=== PATIENT | female | born 1945 | race Caucasian/White ===

== ENCOUNTER 2019-04-21 11:43 | Day surgery (SDC) | payer OTHER ==
[2019-04-15 16:33] VITALS: BMI 31.0
[2019-04-21] MEDS ORDERED: PROPOFOL 20 ML ONE (12:31)
[2019-04-21 14:07] VITALS: BP 128/67; PULSE 78; TEMP 98
== END 2019-04-21 14:07 | disposition home or self-care (01) ==
LOC: FASU-ENDO 11:43
PROVIDERS: ATTEND Internal Medicine Gastroenterology
PROC: 0DJD8ZZ Inspection of Lower Intestinal Tract, Via Natural or Artificial Opening Endoscopic (ICD-10-PCS; principal; 2019-04-21 12:16)
DX: Z12.11 Encounter for screening for malignant neoplasm of colon (principal); K64.0 First degree hemorrhoids; K63.89 Other specified diseases of intestine

== ENCOUNTER 2021-01-23 13:45 | Inpatient (IN) | payer OTHER ==
[2021-01-23 14:21] VITALS: BMI 23.6
[2021-01-23] MEDS ORDERED: ACETAMINOPHEN 1000 MG/100 ML VIAL (NON FORMULARY) IVPB ONE (15:13)
[2021-01-23] MEDS ORDERED: SODIUM CHLORIDE 500 ML IV STA (15:14)
[2021-01-23] MEDS ORDERED: ACETAMINOPHEN INJECTION 100 ML IVPB ONE (15:23)
[2021-01-23 15:57] LABS: BASO % 0.2 % (0-2.0); EOS % 1.1 % (0-4.5); HEMATOCRIT 33.4 % (32.4-45.2); HEMOGLOBIN 10.8 GM/dL (10.7-15.3); LYMPH % 11.5 % (8-40); MCH 29.4 pg (25.7-33.7); MCHC 32.3 g/dl (32.0-36.0); MEAN CELL VOLUME 91.1 fl (80-96); MEAN PLT VOLUME 8.2 fl (7.5-11.1); MONO % 11.2 % (3.8-10.2); PLATELET COUNT 257 K/MM3 (134-434); RBC 3.67 M/mm3 (3.60-5.2); RDW 17.5 % (11.6-15.6); WHITE BLOOD COUNT 10.7 K/mm3 (4.0-10.0)
[2021-01-23 16:04] LABS: INR 1.03 (0.83-1.09); PROTHROMBIN TIME (PATIENT) 12.4 SEC (9.7-13.0)
[2021-01-23 16:06] LABS: ACTIVATED PTT 30.5 SECONDS (25.2-36.5)
[2021-01-23 16:15] LABS: POTASSIUM 4.5 mmol/L (3.5-5.1)
[2021-01-23 16:17] LABS: CALCIUM 8.5 mg/dL (8.5-10.1)
[2021-01-23 16:18] LABS: ALBUMIN 2.4 g/dl (3.4-5.0); BLOOD UREA NITROGEN 29.9 mg/dL (7-18); MAGNESIUM 2.3 mg/dL (1.8-2.4)
[2021-01-23 16:21] LABS: CREATININE 1.5 mg/dL (0.55-1.3)
[2021-01-23 16:22] LABS: BILIRUBIN,TOTAL 0.2 mg/dL (0.2-1); TOT PROT 5.3 g/dl (6.4-8.2)
[2021-01-24 07:29] LABS: HEMATOCRIT 31.4 % (32.4-45.2); HEMOGLOBIN 10.4 GM/dL (10.7-15.3); MCH 29.9 pg (25.7-33.7); MCHC 33.3 g/dl (32.0-36.0); MEAN CELL VOLUME 89.9 fl (80-96); MEAN PLT VOLUME 8.4 fl (7.5-11.1); PLATELET COUNT 245 K/MM3 (134-434); RBC 3.49 M/mm3 (3.60-5.2); RDW 17.7 % (11.6-15.6); WHITE BLOOD COUNT 6.7 K/mm3 (4.0-10.0)
[2021-01-24 07:40] LABS: POTASSIUM 4.4 mmol/L (3.5-5.1)
[2021-01-24 07:46] LABS: CALCIUM 8.6 mg/dL (8.5-10.1)
[2021-01-24 07:47] LABS: ALBUMIN 2.2 g/dl (3.4-5.0); BLOOD UREA NITROGEN 25.4 mg/dL (7-18)
[2021-01-24 07:50] LABS: BILIRUBIN,TOTAL 0.4 mg/dL (0.2-1); CREATININE 1.5 mg/dL (0.55-1.3); TOT PROT 4.9 g/dl (6.4-8.2)
[2021-01-24] MEDS: SODIUM CHLORIDE 1,000 ML IV SCH ×2 (12:18→22:49)
[2021-01-24] MEDS: CARBIDOPA/LEVODOPA 25/100 TABLET (FP) PO SCH ×2 (14:32→22:49)
[2021-01-24] MEDS ORDERED: CARBIDOPA/LEVODOPA 25/100 TABLET (FP) ONE (14:32)
[2021-01-24 14:37] LABS: EPI CELLS 3 /uL (0-25.1); HYALINE CASTS 17 /uL (0-3.1); PH,URINE >= 9.0 (5.0-8.0); URINE APPEARANCE TURBID; URINE BACTERIA 966 /uL (0-1359); URINE BILIRUBIN NEGATIVE (NEGATIVE); URINE COLOR YELLOW; URINE GLUCOSE (UA) NEGATIVE (NEGATIVE); URINE KETONE NEGATIVE (NEGATIVE); URINE LEUK ESTERASE 3+ (NEGATIVE); URINE NITRITE NEGATIVE (NEGATIVE); URINE PROTEIN 1+ (NEGATIVE); URINE WBC 11001 /uL (0-25.8)
[2021-01-24 14:52] LABS: URINE RBC 174.9 /uL (0-23.9)
[2021-01-24 15:10] LABS: YEAST NON SEEN (NEGATIVE)
[2021-01-24] MEDS ORDERED: PT OWN MED DRAWER 7, Y5N ONE (22:25)
[2021-01-24] MEDS: clonazePAM 0.5 MG TABLET PO SCH (22:49)
[2021-01-24] MEDS: DIVALPROEX SODIUM 250 MG TABLET E.C. PO SCH (22:49)
[2021-01-24] MEDS: LATANOPROST 0.005% OPHTH SOLN 2.5ML BOTTLE OU SCH (22:49)
[2021-01-25] MEDS: LEVOTHYROXINE NA 75 MCG TABLET (FP) PO SCH (06:39)
[2021-01-25] MEDS: CARBIDOPA/LEVODOPA 25/100 TABLET (FP) PO SCH ×3 (06:39→22:10)
[2021-01-25] MEDS ORDERED: PT OWN MED DRAWER 7, Y5N ONE ×2 (09:09→21:52)
[2021-01-25] MEDS: DIVALPROEX SODIUM 250 MG TABLET E.C. PO SCH ×2 (09:22→22:00)
[2021-01-25] MEDS: ESCITALOPRAM OXALATE 10 MG TABLET PO SCH (09:22)
[2021-01-25] MEDS: ENOXAPARIN NA (PORCINE) 40 MG/0.4 ML DISP.SYRIN SQ SCH (14:46)
[2021-01-25] MEDS: SODIUM CHLORIDE 1,000 ML IV SCH ×2 (15:57→22:08)
[2021-01-25] MEDS: clonazePAM 0.5 MG TABLET PO SCH (21:59)
[2021-01-25] MEDS: LATANOPROST 0.005% OPHTH SOLN 2.5ML BOTTLE OU SCH (22:08)
[2021-01-26] MEDS: SODIUM CHLORIDE 1,000 ML IV SCH (01:37)
[2021-01-26] MEDS: LEVOTHYROXINE NA 75 MCG TABLET (FP) PO SCH (06:02)
[2021-01-26] MEDS: CARBIDOPA/LEVODOPA 25/100 TABLET (FP) PO SCH ×3 (06:02→21:35)
[2021-01-26] MEDS ORDERED: PT OWN MED DRAWER 7, Y5N ONE ×2 (09:44→21:32)
[2021-01-26] MEDS: DIVALPROEX SODIUM 250 MG TABLET E.C. PO SCH ×2 (09:55→21:35)
[2021-01-26] MEDS: ENOXAPARIN NA (PORCINE) 40 MG/0.4 ML DISP.SYRIN SQ SCH (09:56)
[2021-01-26] MEDS: ESCITALOPRAM OXALATE 10 MG TABLET PO SCH (09:56)
[2021-01-26] MEDS: clonazePAM 0.5 MG TABLET PO SCH (21:34)
[2021-01-26] MEDS: LATANOPROST 0.005% OPHTH SOLN 2.5ML BOTTLE OU SCH (21:36)
[2021-01-27] MEDS: CARBIDOPA/LEVODOPA 25/100 TABLET (FP) PO SCH ×3 (05:57→23:00)
[2021-01-27] MEDS: LEVOTHYROXINE NA 75 MCG TABLET (FP) PO SCH (06:00)
[2021-01-27] MEDS ORDERED: PT OWN MED DRAWER 7, Y5N ONE ×2 (10:14→22:59)
[2021-01-27] MEDS: SODIUM CHLORIDE 1,000 ML IV SCH ×3 (10:23→22:55)
[2021-01-27] MEDS: ESCITALOPRAM OXALATE 10 MG TABLET PO SCH (10:24)
[2021-01-27] MEDS: DIVALPROEX SODIUM 250 MG TABLET E.C. PO SCH ×3 (10:25→23:23)
[2021-01-27] MEDS: ENOXAPARIN NA (PORCINE) 40 MG/0.4 ML DISP.SYRIN SQ SCH (10:25)
[2021-01-27] MEDS: clonazePAM 0.5 MG TABLET PO SCH (23:04)
[2021-01-27] MEDS: LATANOPROST 0.005% OPHTH SOLN 2.5ML BOTTLE OU SCH (23:23)
[2021-01-28] MEDS: LEVOTHYROXINE NA 75 MCG TABLET (FP) PO SCH (07:02)
[2021-01-28] MEDS: CARBIDOPA/LEVODOPA 25/100 TABLET (FP) PO SCH ×3 (07:02→22:17)
[2021-01-28] MEDS: SODIUM CHLORIDE 1,000 ML IV SCH ×2 (07:41→22:19)
[2021-01-28] MEDS: DIVALPROEX SODIUM 250 MG TABLET E.C. PO SCH ×2 (10:46→22:19)
[2021-01-28] MEDS: ESCITALOPRAM OXALATE 10 MG TABLET PO SCH (10:46)
[2021-01-28] MEDS ORDERED: PT OWN MED DRAWER 7, Y5N ONE (22:12)
[2021-01-28] MEDS: POLYETHYLENE GLYCOL 3350 119 GM BTL PO SCH (22:16)
[2021-01-28] MEDS: clonazePAM 0.5 MG TABLET PO SCH (22:20)
[2021-01-28] MEDS: LATANOPROST 0.005% OPHTH SOLN 2.5ML BOTTLE OU SCH (22:21)
[2021-01-29] MEDS: SODIUM CHLORIDE 1,000 ML IV SCH ×2 (04:10→21:41)
[2021-01-29] MEDS: LEVOTHYROXINE NA 75 MCG TABLET (FP) PO SCH (06:21)
[2021-01-29] MEDS: CARBIDOPA/LEVODOPA 25/100 TABLET (FP) PO SCH ×3 (06:21→21:42)
[2021-01-29] MEDS ORDERED: PT OWN MED DRAWER 7, Y5N ONE ×2 (09:26→14:26)
[2021-01-29 09:27] LABS: BASO % 0.4 % (0-2.0); EOS % 1.7 % (0-4.5); HEMATOCRIT 28.2 % (32.4-45.2); HEMOGLOBIN 9.4 GM/dL (10.7-15.3); LYMPH % 28.7 % (8-40); MCH 29.7 pg (25.7-33.7); MCHC 33.3 g/dl (32.0-36.0); MEAN CELL VOLUME 89.4 fl (80-96); MONO % 10.8 % (3.8-10.2); NEUT % 58.4 % (42.8-82.8); PLATELET COUNT 176 K/MM3 (134-434); RBC 3.15 M/mm3 (3.60-5.2); RDW 16.9 % (11.6-15.6); WHITE BLOOD COUNT 3.5 K/mm3 (4.0-10.0)
[2021-01-29 09:28] LABS: CHLORIDE 114 mmol/L (98-107); POTASSIUM 3.8 mmol/L (3.5-5.1); SODIUM 142 mmol/L (136-145)
[2021-01-29 09:31] LABS: CALCIUM 7.7 mg/dL (8.5-10.1)
[2021-01-29 09:32] LABS: ANION GAP 4 MMOL/L (8-16); BLOOD UREA NITROGEN 12.8 mg/dL (7-18); CO2 24 mmol/L (21-32); GLUCOSE,RANDOM 71 mg/dL (74-106)
[2021-01-29 09:35] LABS: CREATININE 1.1 mg/dL (0.55-1.3); SGOT/AST 12 U/L (15-37); SGPT/ALT < 6 U/L (13-61)
[2021-01-29 09:36] LABS: BILIRUBIN,TOTAL 0.3 mg/dL (0.2-1); TOT PROT 3.8 g/dl (6.4-8.2)
[2021-01-29 09:38] LABS: ALK PHOS 96 U/L (45-117)
[2021-01-29 09:39] LABS: ALBUMIN 1.7 g/dl (3.4-5.0)
[2021-01-29] MEDS: ESCITALOPRAM OXALATE 10 MG TABLET PO SCH (09:39)
[2021-01-29] MEDS: DIVALPROEX SODIUM 250 MG TABLET E.C. PO SCH ×2 (09:39→21:43)
[2021-01-29] MEDS: POLYETHYLENE GLYCOL 3350 119 GM BTL PO SCH (09:40)
[2021-01-29] MEDS ORDERED: MIDAZOLAM HCL 2 MG/2 ML SINGLE DOSE VIAL ONE (16:05)
[2021-01-29] MEDS: clonazePAM 0.5 MG TABLET PO SCH (21:43)
[2021-01-29] MEDS: LATANOPROST 0.005% OPHTH SOLN 2.5ML BOTTLE OU SCH (21:46)
[2021-01-30] MEDS: SODIUM CHLORIDE 1,000 ML IV SCH ×3 (01:00→16:08)
[2021-01-30] MEDS: CARBIDOPA/LEVODOPA 25/100 TABLET (FP) PO SCH ×3 (06:12→22:04)
[2021-01-30] MEDS: LEVOTHYROXINE NA 75 MCG TABLET (FP) PO SCH (06:12)
[2021-01-30] MEDS ORDERED: PT OWN MED DRAWER 7, Y5N ONE (09:14)
[2021-01-30] MEDS: ESCITALOPRAM OXALATE 10 MG TABLET PO SCH (09:39)
[2021-01-30] MEDS: DIVALPROEX SODIUM 250 MG TABLET E.C. PO SCH ×2 (09:39→22:04)
[2021-01-30] MEDS: POLYETHYLENE GLYCOL 3350 119 GM BTL PO SCH (09:39)
[2021-01-30] MEDS: clonazePAM 0.5 MG TABLET PO SCH (22:04)
[2021-01-30] MEDS: LATANOPROST 0.005% OPHTH SOLN 2.5ML BOTTLE OU SCH (22:12)
[2021-01-31] MEDS: SODIUM CHLORIDE 1,000 ML IV SCH (02:05)
[2021-01-31] MEDS: LEVOTHYROXINE NA 75 MCG TABLET (FP) PO SCH (06:01)
[2021-01-31] MEDS: CARBIDOPA/LEVODOPA 25/100 TABLET (FP) PO SCH ×3 (06:01→21:26)
[2021-01-31 07:07] LABS: SARS-CoV-2 NAA Not Detected (Not Detected)
[2021-01-31 09:21] LABS: CALCIUM 8.6 mg/dL (8.5-10.1)
[2021-01-31 09:22] LABS: BLOOD UREA NITROGEN 14.6 mg/dL (7-18)
[2021-01-31] MEDS ORDERED: PT OWN MED DRAWER 7, Y5N ONE (10:38)
[2021-01-31] MEDS: DIVALPROEX SODIUM 250 MG TABLET E.C. PO SCH ×2 (10:56→21:26)
[2021-01-31] MEDS: ESCITALOPRAM OXALATE 10 MG TABLET PO SCH (10:56)
[2021-01-31] MEDS: POLYETHYLENE GLYCOL 3350 119 GM BTL PO SCH (10:57)
[2021-01-31] MEDS: clonazePAM 0.5 MG TABLET PO SCH (21:26)
[2021-01-31] MEDS: LATANOPROST 0.005% OPHTH SOLN 2.5ML BOTTLE OU SCH (21:26)
[2021-02-01 02:34] VITALS: BP 110/64; PULSE 75; TEMP 98
== END 2021-02-01 05:47 | DRG 669 ==
LOC: JER 13:45 → JERBED 17:24 → J6S 01-24 14:54
PROVIDERS: ADMIT Internal Medicine; ATTEND Internal Medicine
PROC: BT17ZZZ Fluoroscopy of Left Ureter (ICD-10-PCS; 2021-01-29)
PROC: 0TC77ZZ Extirpation of Matter from Left Ureter, Via Natural or Artificial Opening (ICD-10-PCS; principal; 2021-01-29 14:30)
DX: T83.593A Infection and inflammatory reaction due to other urinary stents, initial encounter (principal); N13.6 Pyonephrosis; J44.9 Chronic obstructive pulmonary disease, unspecified; E03.9 Hypothyroidism, unspecified; G25.0 Essential tremor; F31.9 Bipolar disorder, unspecified; F41.9 Anxiety disorder, unspecified; K21.9 Gastro-esophageal reflux disease without esophagitis; F41.8 Other specified anxiety disorders; M54.5 Low back pain; G89.29 Other chronic pain; I12.9 Hypertensive chronic kidney disease with stage 1 through stage 4 chronic kidney disease, or unspecified chronic kidney disease; N18.9 Chronic kidney disease, unspecified; G20 Parkinson's disease; K59.09 Other constipation; R63.4 Abnormal weight loss; Z68.23 Body mass index [BMI] 23.0-23.9, adult; Y83.8 Other surgical procedures as the cause of abnormal reaction of the patient, or of later complication, without mention of misadventure at the time of the procedure
CPT/HCPCS: 36415; 71250-TC; 72125-TC; 72128-TC; 72131-TC; 74176-TC; 80048; 80053; 81003; 83735; 85025; 85027; 85610; 85730; 86850; 86900; 86901; 87086; 93005; 93010; 99285-25; C9803; J0131; U0003; U0005

== ENCOUNTER 2021-02-12 04:23 | Day surgery (SDC) | payer OTHER ==
[2021-02-09 17:19] VITALS: BMI 23.7
[2021-02-12] MEDS ORDERED: LIDOCAINE HCL/PF 2% SDV 5ML VIAL ONE (08:56)
[2021-02-12] MEDS ORDERED: PROPOFOL 20 ML ONE ×2 (08:56)
[2021-02-12] MEDS ORDERED: MIDAZOLAM HCL 2 MG/2 ML SINGLE DOSE VIAL ONE (08:57)
[2021-02-12] MEDS ORDERED: DEXAMETHASONE SOD PHOSPHATE 4 MG/1 ML VIAL ONE (09:29)
[2021-02-12] MEDS ORDERED: ACETAMINOPHEN 325 MG TABLET (FP) PO PRN (10:06)
[2021-02-12] MEDS ORDERED: ONDANSETRON 4 MG/2 ML VIAL IVPUSH PRN (10:06)
[2021-02-12] MEDS ORDERED: LACTATED RINGERS SOLUTION 1,000 ML IV SCH (10:15)
[2021-02-12 12:53] VITALS: BP 106/60; PULSE 82; TEMP 97.8
== END 2021-02-12 12:30 ==
LOC: JASU-SURG 04:23
PROVIDERS: ATTEND Urology
PROC: 0T9780Z Drainage of Left Ureter with Drainage Device, Via Natural or Artificial Opening Endoscopic (ICD-10-PCS; principal; 2021-02-12 08:30)
DX: N20.0 Calculus of kidney (principal); N20.1 Calculus of ureter
CPT/HCPCS: 76000-TC-FY; 88300-TC; 94760

== ENCOUNTER 2021-02-16 09:29 | Day surgery (SDC) | payer OTHER ==
[2021-02-12 15:43] VITALS: BMI 26.7
[2021-02-16] MEDS ORDERED: PROPOFOL 20 ML ONE ×3 (09:55)
[2021-02-16 11:47] VITALS: TEMP 97.8
[2021-02-16 12:15] VITALS: BP 124/58; PULSE 72
== END 2021-02-16 12:35 ==
LOC: FASU-ENDO 09:29
PROVIDERS: ATTEND Internal Medicine Gastroenterology
PROC: 0DB78ZX Excision of Stomach, Pylorus, Via Natural or Artificial Opening Endoscopic, Diagnostic (ICD-10-PCS; 2021-02-16)
PROC: 0DB48ZX Excision of Esophagogastric Junction, Via Natural or Artificial Opening Endoscopic, Diagnostic (ICD-10-PCS; 2021-02-16)
PROC: 0DB98ZX Excision of Duodenum, Via Natural or Artificial Opening Endoscopic, Diagnostic (ICD-10-PCS; principal; 2021-02-16 11:14)
DX: K29.80 Duodenitis without bleeding (principal); K31.7 Polyp of stomach and duodenum; K29.50 Unspecified chronic gastritis without bleeding; K22.8 Other specified diseases of esophagus; R10.13 Epigastric pain; R11.2 Nausea with vomiting, unspecified; R63.4 Abnormal weight loss; Z68.26 Body mass index [BMI] 26.0-26.9, adult
CPT/HCPCS: 88305-TC; 88342-TC

== ENCOUNTER 2021-06-01 12:26 | Day surgery (SDC) | payer OTHER ==
[2021-06-01 15:11] VITALS: PULSE 72; TEMP 97.8
[2021-06-01 15:29] VITALS: BP 110/71
== END 2021-06-01 15:48 ==
LOC: FASU-ENDO 12:26
PROVIDERS: ATTEND Internal Medicine Gastroenterology
PROC: 0DJD8ZZ Inspection of Lower Intestinal Tract, Via Natural or Artificial Opening Endoscopic (ICD-10-PCS; principal; 2021-06-01 14:28)
DX: R10.9 Unspecified abdominal pain (principal); K64.1 Second degree hemorrhoids

== ENCOUNTER 2021-07-16 04:58 | Day surgery (SDC) | payer OTHER ==
[2021-07-16] MEDS ORDERED: PROPOFOL 20 ML ONE (12:06)
[2021-07-16] MEDS ORDERED: MIDAZOLAM HCL 2 MG/2 ML SINGLE DOSE VIAL ONE (12:06)
[2021-07-16] MEDS ORDERED: ONDANSETRON 4 MG/2 ML VIAL IVPUSH PRN (14:52)
[2021-07-16] MEDS ORDERED: oxyCODONE HCL 5 MG TABLET PO PRN ×2 (14:52→17:17)
[2021-07-16] MEDS ORDERED: LACTATED RINGERS SOLUTION 1,000 ML IV SCH ×2 (15:00→17:30)
[2021-07-16 15:14] VITALS: BP 127/70; PULSE 71; TEMP 97.4
== END 2021-07-16 15:00 ==
LOC: JASU-SURG 04:58
PROVIDERS: ATTEND Urology
PROC: 0T778ZZ Dilation of Left Ureter, Via Natural or Artificial Opening Endoscopic (ICD-10-PCS; principal; 2021-07-16 11:00)
PROC: 0T9780Z Drainage of Left Ureter with Drainage Device, Via Natural or Artificial Opening Endoscopic (ICD-10-PCS; 2021-07-16 11:00)
DX: N13.1 Hydronephrosis with ureteral stricture, not elsewhere classified (principal); R82.81 Pyuria
CPT/HCPCS: 76000-TC-FY; 87086; 94760